=== PATIENT | female | born 1945 | race Caucasian/White ===

== ENCOUNTER 2017-11-17 13:00 | Inpatient (IN) | payer MEDICARE ==
[~2017-11-17] VITALS: Ht 162.7 cm; Wt 61.0 kg
[~2017-11-17 13:00] MED LIST: ALEVE 220MG220 MG PO; CALCIUM CARBONATE PO; CELEBREX 200MG200 MG PO; COUMADIN5 MG PO; FERROUS SU325 MG/TAB PO; FOLIC ACID1 MG PO; FOSAMAX 70MG TA70 MG PO; METHOTREXA2.5 MG/TAB PO; MULTIPLE VITAMI1 CAP PO; NO HOME MEDICATIONS; NORCO 325 MG-7.1 TAB PO; TYLENOL 325MG325 MG PO; ULTRAM 50MG TAB50 MG PO; VITAMIN C500 MG PO; XARELTO10 MG PO; ZESTRIL30 MG PO
[2017-11-17 13:22] VITALS: BP 132/52; PULSE 76; TEMP 98.7
[2017-11-17] MEDS ORDERED: MILK OF MA400 MG/52 PO (15:56)
[2017-11-17] MEDS ORDERED: DULCOLAX S10 MG/SUPP RC (15:56)
[2017-11-17] MEDS ORDERED: MAALOX ADVANCE148 ML PO (15:57)
[2017-11-17] MEDS ORDERED: TYLENOL 325MG325 MG PO ×2 (15:57→15:58)
[2017-11-17 19:00] VITALS: BP 127/62; PULSE 83; TEMP 98.9
[2017-11-17 21:44] VITALS: BP 132/55; PULSE 88; TEMP 98.5
[2017-11-18] VITALS (11 sets, daily range): BP systolic 112–138; BP diastolic 53–67; PULSE 73–106; TEMP 99.1–100.2
[2017-11-18 06:34] LABS: BASO % 0.4 % (0.0-2.0); EOS % 0.2 % (0-4.0); GRAN # 3.6 (1.4-6.5); GRAN % 74.4 % (42.2-75.2); LYMPH # 0.8 (1.2-3.4); LYMPH % 16.6 % (20.0-51.0); MEAN CELL VOLUME 84 fl (80.0-100.0); MEAN CORPUSCULAR HGB CONC 32 g/dl (33.0-37.0); MEAN PLATELET VOLUME 9.5 fl (7.4-10.4); MONO # 0.4 (0.1-0.6); PLATELET COUNT 240 K/mm3 (130-400); RED BLOOD COUNT 3.32 M/mm3 (4.10-5.30); REDCELL DISTRIBUTION WIDTH-CV 15.7 % (11.5-14.5)
[2017-11-18 07:04] LABS: ALBUMIN 2.9 gm/dL (3.5-5.0); BILIRUBIN,TOTAL 0.3 mg/dL (0.0-1.0); CALCIUM 8.3 mg/dL (8.4-10.2); CREATININE, serum 0.79 mg/dL (0.52-1.25); HEMATOCRIT 27.9 % (37.0-47.0); HEMOGLOBIN 8.8 g/dl (12.5-16.0); MEAN CORPUSCULAR HEMOGLOBIN 27 pg (27.0-31.0); POTASSIUM 3.8 mmol/L (3.4-5.0); TOTAL PROTEIN 6.6 gm/dL (6.4-8.2)
[2017-11-19] VITALS: BP 140/58; BP 142/85; PULSE 61; PULSE 81; TEMP 100.1; TEMP 97.5
[2017-11-19 04:00] VITALS: BP 123/52; PULSE 85; TEMP 99.1
[2017-11-19 08:29] VITALS: BP 129/56; PULSE 76; TEMP 98.4
[2017-11-19 11:23] VITALS: BP 128/53; PULSE 75; TEMP 98.6
[2017-11-19 15:52] VITALS: BP 128/52; PULSE 87; TEMP 98.8
[2017-11-19 21:16] VITALS: BP 128/64; PULSE 88; TEMP 99.2
[2017-11-20 00:38] VITALS: BP 139/63; PULSE 94; TEMP 98.8
[2017-11-20 05:03] VITALS: BP 125/57; PULSE 89; TEMP 98.8
[2017-11-20] MEDS ORDERED: ASPI325T6 PO (08:31)
[2017-11-20] MEDS ORDERED: VITAMINC500CH PO (08:33)
[2017-11-20] MEDS ORDERED: SENOKOT S 50 MG1 TAB PO (08:33)
[2017-11-20] MEDS ORDERED: MULTI VITAMINS1 TAB PO (08:33)
[2017-11-20] MEDS ORDERED: NORCO 325 MG-51 TAB PO (08:34)
[2017-11-20] MEDS ORDERED: FERROUS SU325 MG/TAB PO (09:37)
[2017-11-20 10:40] VITALS: BP 125/57; PULSE 89; TEMP 98.8
== END 2017-11-20 10:37 | DRG 481 ==
LOC: SURG 13:00
PROVIDERS: Internal Medicine; Orthopaedic Surgery
PROC: 0QS606Z Reposition Right Upper Femur with Intramedullary Internal Fixation Device, Open Approach (ICD-10-PCS; principal; 2017-11-18 15:30)
DX: S72.141A Displaced intertrochanteric fracture of right femur, initial encounter for closed fracture (principal); N39.0 Urinary tract infection, site not specified; D62 Acute posthemorrhagic anemia; W18.30XA Fall on same level, unspecified, initial encounter; G30.9 Alzheimer's disease, unspecified; F02.80 Dementia in other diseases classified elsewhere, unspecified severity, without behavioral disturbance, psychotic disturbance, mood disturbance, and anxiety; I10 Essential (primary) hypertension; M06.9 Rheumatoid arthritis, unspecified; Z86.718 Personal history of other venous thrombosis and embolism; B96.20 Unspecified Escherichia coli [E. coli] as the cause of diseases classified elsewhere; D50.0 Iron deficiency anemia secondary to blood loss (chronic)
CPT/HCPCS: 99223-AI; 99232-AI; 99239; A9284; C1713; J0690; J0696; J2270; J2370; J2704; J3010; J7030; J7121